=== PATIENT | male | born 1980 | race Caucasian/White ===

== ENCOUNTER 2022-04-27 17:40 | Emergency (ER) | payer MEDICAID ==
[~2022-04-27] VITALS: Ht 172.7 cm; Wt 73.0 kg
[2022-04-27 18:08] VITALS: BP 143/93
[2022-04-27] MEDS ORDERED: gabapentin 300mg capsule PO ONE (19:00)
[2022-04-27] MEDS ORDERED: CLON-527 PO (19:00)
[2022-04-27] MEDS ORDERED: SERT50TA PO (19:00)
[2022-04-27] MEDS ORDERED: clonazePAM 1mg tablet PO ONE (19:00)
[2022-04-27] MEDS ORDERED: GABA-530 PO (19:00)
[2022-04-27] MEDS ORDERED: sertraline 50mg tablet PO ONE (19:00)
== END 2022-04-27 19:11 | disposition home or self-care (01) ==
LOC: ER 17:41
DX: F32.A Depression, unspecified (principal); F41.9 Anxiety disorder, unspecified
CPT/HCPCS: 99284

== ENCOUNTER → 2022-07-16 | Emergency (ER) | payer MEDICAID ==
[~2022-07-16] VITALS: Ht 172.7 cm; Wt 73.0 kg
[~2022-07-16] MED LIST: CLON-527 PO; GABA-530 PO
[2022-07-16 15:18] VITALS: BP 137/80
== END | disposition left against medical advice (07) ==
LOC: ER 15:03
DX: R00.0 Tachycardia, unspecified (principal); F41.9 Anxiety disorder, unspecified; F32.9 Major depressive disorder, single episode, unspecified; Z87.891 Personal history of nicotine dependence; Z72.89 Other problems related to lifestyle; Z79.899 Other long term (current) drug therapy
CPT/HCPCS: 99281

== ENCOUNTER 2023-01-31 09:06 | Emergency (ER) | payer MEDICAID ==
[~2023-01-31] VITALS: Ht 175.3 cm; Wt 75.0 kg
[2023-01-31 09:11] VITALS: BP 144/91; PULSE 101; RESP 20; TEMP 98.8; O2SAT 100
[2023-01-31] MEDS ORDERED: ALPRAZolam 0.5mg tablet PO ONE (09:35)
[2023-01-31] MEDS ORDERED: cloNIDine 0.1 mg tablet PO ONE (09:40)
[2023-01-31] MEDS ORDERED: SERT-434 PO (09:41)
[2023-01-31] MEDS ORDERED: CLON0.1T PO (09:41)
[2023-01-31] MEDS ORDERED: ALPR0.5T8 PO ×2 (09:41→09:42)
== END 2023-01-31 09:56 | disposition home or self-care (01) ==
LOC: ER 09:07
DX: F41.9 Anxiety disorder, unspecified (principal); F32.A Depression, unspecified; Z79.899 Other long term (current) drug therapy; Z72.89 Other problems related to lifestyle
CPT/HCPCS: 99283

== ENCOUNTER 2023-10-08 09:13 | Emergency (ER) | payer MEDICAID ==
[~2023-10-08] VITALS: Ht 175.3 cm; Wt 71.4 kg
[~2023-10-08 09:13] MED LIST changes: +ALPR0.5T8 PO; +CLON0.1T PO; +SERT-434 PO
[2023-10-08 09:32] VITALS: BP 153/94; PULSE 82; TEMP 98.4; O2SAT 99
[2023-10-08] MEDS ORDERED: ketorolac trometh inj. 60 MG/2 ML VIAL IM ONE (09:55)
[2023-10-08] MEDS ORDERED: AMOX-117 PO (10:03)
[2023-10-08 10:56] VITALS: RESP 16
[2023-10-08] MEDS: ketorolac trometh. 30mg/ml inj. IM ONE (10:56)
== END 2023-10-08 11:03 | disposition home or self-care (01) ==
LOC: ER 09:13
DX: K04.7 Periapical abscess without sinus (principal); Z79.899 Other long term (current) drug therapy; Z79.2 Long term (current) use of antibiotics
CPT/HCPCS: 96372; 99283; J1885

== ENCOUNTER 2023-11-14 17:05 | Emergency (ER) | payer MEDICAID ==
[~2023-11-14] VITALS: Ht 172.7 cm; Wt 70.7 kg
[2023-11-14 17:44] VITALS: BP 121/66; PULSE 91; RESP 16; TEMP 97.8; O2SAT 99
[2023-11-14] MEDS ORDERED: CLON0.5T2 PO (17:46)
== END 2023-11-14 17:55 | disposition home or self-care (01) ==
LOC: ER 17:06
DX: F41.9 Anxiety disorder, unspecified (principal); Z79.899 Other long term (current) drug therapy
CPT/HCPCS: 99281